=== PATIENT | male | born 1945 | race Caucasian/White ===

== ENCOUNTER 2017-05-22 11:01 | Emergency (ER) | payer MEDICARE ==
[2017-05-22 11:17] VITALS: BMI 29.3
[2017-05-22 11:19] VITALS: TEMP 98.9; O2SAT 98
--- NOTE | 2017-05-22 11:45 | C.PDOC ---
History Of Present Illness 71 y/o male with multiple medical problems comes to ED s/p trip and fall over a hose today; pt fell forward and right side of his face hit the edge of a crate on the floor. pt denies loc and neck pain. pt denies any chest pain, sob, dizziness or lightheadedness prior to fall. denies any blurry vision. denies any numbness or tingling. denies any other injuries. last tdap more than 10 yrs ago. pt reports he has not yet taken his bp medicine today, usually takes it at 330 pm. Time Seen by Provider: 05/22/17 11:33 Chief Complaint (Nursing): Abnormal Skin Integrity History Per: Patient History/Exam Limitations: no limitations Onset/Duration Of Symptoms: Hrs (1) Current Symptoms Are (Timing): Still Present Location Of Injury: Right: Face Severity: Mild Past Medical History Reviewed: Historical Data, Nursing Documentation, Vital Signs Vital Signs: Last Vital Signs Temp 98.9 F 05/22/17 11:17 Pulse 74 05/22/17 14:54 Resp 20 05/22/17 14:54 BP 179/77 H 05/22/17 14:54 Pulse Ox 98 05/24/17 12:06 - Medical History PMH: CAD, HTN, Hypercholesterolemia Surgical History: CABG Other Surgeries: cataract right Family History: States: Unknown Family Hx - Social History Hx Substance Use: No - Immunization History Hx Tetanus Toxoid Vaccination: No Review Of Systems Cardiovascular: Negative for: Chest Pain, Light Headedness Musculoskeletal: Negative for: Neck Pain, Back Pain Skin: Positive for: Other (2 small laceration right lateral eye and upper lid). Negative for: Rash Neurological: Negative for: Weakness, Numbness, Headache, Dizziness Physical Exam - Physical Exam Appears: Non-toxic, No Acute Distress Skin: Warm, Diaphoretic, Ecchymosis (right upper eyelid) Head: Normacephalic, Laceration (2 mm laceration in right eyebrow and 1cm laceration lateral to right eye) Eye(s): bilateral: Normal Inspection, PERRL, EOMI, right: Other (tender right lateral orbit, no step off or crepiitus) Ear(s): Bilateral: TM Dull (no hemotympanum) Nose: Normal Neck: Normal ROM, No Midline Cervical Tenderness, Supple Chest: Symmetrical, No Tenderness Cardiovascular: Rhythm Regular, No Murmur Respiratory: Normal Breath Sounds Gastrointestinal/Abdominal: Soft, No Tenderness Extremity: Normal ROM, No Tenderness Neurological/Psych: Oriented x3, Normal Speech, Normal Cognition, Normal Cranial Nerves, Normal Motor, Normal Sensation ED Course And Treatment O2 Sat by Pulse Oximetry: 98 (On RA) Pulse Ox Interpretation: Normal - Other Rad facial bones X-Ray: Read By Radiologist Interpretation: Limited right lateral periorbital soft tissue edema is preseptal only. No fracture or additional soft tissue abnormality is grossly evident with the left orbit grossly unremarkable. - CT Scan/US head Other Rad Studies (CT/US): Read By Radiologist CT/US Interpretation: IMPRESSION: No definite acute intracranial findings by standard CT criteria. Age related neuro degenerative change identified, appearing age-appropriate. Follow-up CT or MRI are available if clinically warranted. Laceration - Laceration Repair right eyebrow Wound Length (In cm): 0.2 Description Of Wound: Irregular Wound Cleansed With: Sterile Saline Anesthesia: Lidocaine 1% Wound Examination: Irrigated With Saline, No FB With Wound Exploration Wound Closure: Suture (3) Suture Technique And Material Used: Interrupted, Nylon (5-0) Wound Complexity: Simple Medical Decision Making Medical Decision Making: Plan: * Tetanus 0.5 ml IM given Re-evaluation : 2nd laceration on right lateral eye sutured with 5-0 nylon, 3 sutures laceration Disposition Counseled Patient/Family Regarding: Studies Performed, Diagnosis, Need For Followup, Rx Given - Disposition Referrals: Harman Gautam [Staff Provider] - Disposition: HOME/ ROUTINE Disposition Time: 14:51 Condition: IMPROVED Additional Instructions: Please follow up with your doctor in 1-2 days. Suture removal in 5-7 days. Return to ER for any severe headache, vomiting, nausea, seizure or any unusual behavior. Tylenol for pain if needed. Instructions: Care For Your Stitches (ED), Laceration (ED), Head Injury (ED) Forms: General Discharge Instructions, [employer] [facility] (Armenian) - Clinical Impression Clinical Impression: Fall from other slipping, tripping, or stumbling, Laceration of right eyelid and periocular area
--- NOTE | 2017-05-22 12:55 | CT ---
PROCEDURE: CT HEAD WITHOUT CONTRAST. HISTORY: tripped and hit head COMPARISON: None available. TECHNIQUE: Axial computed tomography images were obtained through the head/brain without intravenous contrast. Radiation dose: Total exam DLP = 888.41 mGy-cm. This CT exam was performed using one or more of the following dose reduction techniques: Automated exposure control, adjustment of the mA and/or kV according to patient size, and/or use of iterative reconstruction technique. FINDINGS: HEMORRHAGE: No intracranial hemorrhage. BRAIN: Diffuse expansion of the ventriculosulcal and cisternal spaces is appreciated with white matter lucency compatible with diffuse cerebral atrophy and chronic microangiopathy. There is no mass effect. Chronic lacunes are infrequently seen at the right basal ganglia superiorly. Midline brain anatomy appears unremarkable and there is no suspicious extra-axial fluid collection identified. VENTRICLES: Unremarkable. No hydrocephalus. CALVARIUM: No destructive bony lesion or displaced fracture identified including through the skullbase. PARANASAL SINUSES: Unremarkable as visualized. No significant inflammatory changes. MASTOID AIR CELLS: Unremarkable as visualized. No inflammatory changes. OTHER FINDINGS: None. IMPRESSION: No definite acute intracranial findings by standard CT criteria. Age related neuro degenerative change identified, appearing age-appropriate. Follow-up CT or MRI are available if clinically warranted.
--- NOTE | 2017-05-22 13:00 | CT ---
PROCEDURE: CT ORBITS WITHOUT CONTRAST. HISTORY: right lateral orbital tenderness COMPARISON: None available. TECHNIQUE: Axial CT images of the orbits were obtained. Coronal and sagittal reformats were generated. Radiation dose: Total exam DLP = 837.07 mGy-cm. This CT exam was performed using one or more of the following dose reduction techniques: Automated exposure control, adjustment of the mA and/or kV according to patient size, and/or use of iterative reconstruction technique. FINDINGS: RIGHT ORBIT: RIGHT BONY ORBIT: Normal. RIGHT INTRAORBITAL STRUCTURES: Globe: Normal. Extraocular muscles: Normal. Post septal space: Normal. Optic Nerve: Normal. Lacrimal Apparatus: Normal. RIGHT PRESEPTAL SOFT TISSUES: Mild right lobe lateral periorbital soft tissue edema is appreciate which is preseptal only. LEFT ORBIT: LEFT BONY ORBIT: Normal. LEFT INTRAORBITAL STRUCTURES: Globe: Normal. Extraocular muscles: Normal. Post septal space: Normal Optic Nerve: Normal. . Lacrimal Apparatus: Normal. LEFT PRESEPTAL SOFT TISSUES: Normal. OTHER: None. IMPRESSION: Limited right lateral periorbital soft tissue edema is preseptal only. No fracture or additional soft tissue abnormality is grossly evident with the left orbit grossly unremarkable.
[2017-05-22] MEDS ORDERED: Lidocaine 1% Inj (20ml) INFIL ONE (14:07)
[2017-05-22] MEDS ORDERED: Lidocaine 1% Inj (20ml) ONE (14:08)
[2017-05-22] MEDS ORDERED: Bacitracin 500 Units/gm Oint Foilpak UD TOP ONE (14:41)
[2017-05-22] MEDS ORDERED: Bacitracin 500 Units/gm Oint Foilpak UD ONE (14:53)
[2017-05-22 14:55] VITALS: BP 179/77; PULSE 74; RESP 20
== END 2017-05-22 15:03 | disposition home or self-care (01) ==
LOC: C.ER 11:01
DX: S01.111A Laceration without foreign body of right eyelid and periocular area, initial encounter (principal); W01.0XXA Fall on same level from slipping, tripping and stumbling without subsequent striking against object, initial encounter

== ENCOUNTER 2017-05-30 11:31 | Emergency (ER) | payer MEDICARE ==
[2017-05-30 11:31] VITALS: BMI 29.3
[2017-05-30 11:34] VITALS: BP 174/74; PULSE 70; RESP 17; TEMP 97.9; O2SAT 97
--- NOTE | 2017-05-30 12:13 | C.PDOC ---
History Of Present Illness FOR SUTURE REMOVAL. PS HEALING WELL, DENIES PAIN. EXAM NAD SKIN +INTACT SUTURES 2 LACS R PERIORB. NO SWELLING, REDNESS, DC. NONTEND. SUTURES INTACT PROC 6 SUTURES REMOVED WO DIFF W 11 BLADE. PT TOLERATED WELL Time Seen by Provider: 05/30/17 11:39 Chief Complaint (Nursing): Suture/Staple Removal History Per: Patient History/Exam Limitations: no limitations Onset/Duration Of Symptoms: Days Ago Past Medical History Reviewed: Historical Data, Nursing Documentation, Vital Signs Vital Signs: Last Vital Signs Temp 97.9 F 05/30/17 11:34 Pulse 70 05/30/17 11:34 Resp 17 05/30/17 11:34 BP 174/74 H 05/30/17 11:34 Pulse Ox 97 05/30/17 12:13 - Medical History PMH: CAD, HTN, Hypercholesterolemia Surgical History: CABG, Tonsillectomy Family History: States: No Known Family Hx - Social History Hx Alcohol Use: No Hx Substance Use: No - Immunization History Hx Tetanus Toxoid Vaccination: No Hx Influenza Vaccination: No Hx Pneumococcal Vaccination: No Review Of Systems Except As Marked, All Systems Reviewed And Found Negative. Constitutional: Negative for: Fever Eyes: Negative for: Pain Skin: Positive for: Other (Right periorbital suture removal) Physical Exam - Physical Exam Appears: Non-toxic, No Acute Distress Skin: Warm, Dry, Other (Right Periorbital - Intact sutures, 2 lacerations. No swelling. No redness. No discharge. No tenderness.) Head: Atraumatic, Normacephalic Oral Mucosa: Moist Extremity: Normal ROM, No Swelling Neurological/Psych: Oriented x3, Normal Speech, Normal Motor ED Course And Treatment O2 Sat by Pulse Oximetry: 97 (RA) Pulse Ox Interpretation: Normal Medical Decision Making Medical Decision Making: PROCEDURE: 6 sutures removed w/o difficulty with 11 blade. Patient tolerated well. Disposition Counseled Patient/Family Regarding: Diagnosis, Need For Followup - Disposition Referrals: YOUR,PMD [Other] Disposition: HOME/ ROUTINE Disposition Time: 12:09 Condition: IMPROVED Instructions: Stitches Removal (ED) Forms: [employer] (B[place]i) - Clinical Impression Clinical Impression: Removal of suture - Scribe Statement The provider has reviewed the documentation as recorded by the Narciso Pineda Provider Attestation: All medical record entries made by the Scribe were at my direction and personally dictated by me. I have reviewed the chart and agree that the record accurately reflects my personal performance of the history, physical exam, medical decision making, and the department course for this patient. I have also personally directed, reviewed, and agree with the discharge instructions and disposition.
== END 2017-05-30 12:15 | disposition home or self-care (01) ==
LOC: C.ER 11:31
DX: Z48.02 Encounter for removal of sutures (principal)

== ENCOUNTER 2018-09-08 16:11 | Outpatient (CLI) | payer MEDICARE | END 2018-09-08 16:12 | disposition home or self-care (01) | LOC: C.LAB 16:11 ==